=== PATIENT | male | born 1975 | race Caucasian/White ===

== ENCOUNTER 2017-09-21 09:22 | Emergency (ER) | payer SELFPAY ==
[~2017-09-21] VITALS: Ht 175.3 cm; Wt 85.0 kg
[2017-09-21 09:26] VITALS: BP 189/100; PULSE 83; RESP 16; TEMP 97.8; O2SAT 99
--- NOTE | 2017-09-21 10:03 | PD ---
HPI Chief Complaint: Musculoskeletal Complaint Time Seen by Provider: 09:56 Travel History International Travel<30 days: No Contact w/Intl Traveler<30days: No Traveled to known affect area: No History of Present Illness HPI 42-year-old male presents emergency department for evaluation of low back and left shoulder pain. Says that he was at [employer] this morning when he was bent over and stood up suddenly and felt a pain in his lower back. Says that the pain is worse with standing and decreases with rest. Mild to moderate in severity. Says the pain is located in the lower lumbar paraspinous area that is sharp and radiates to the front of the thighs. Denies weakness. Denies fevers , loss of bowel or bladder function, saddle anesthesia, IV drug use, direct trauma. In addition, says that his left shoulder has been sore since yesterday. He points to the acromion process and trapezius muscles. He denies any inciting events or injuries. Denies history of shoulder injuries. Says the arm is worse with shoulder abduction and decreases with rest. Mild to moderate in severity. He denies weakness. Denies numbness or tingling of the arm. No known medical problems. No history of kidney stones. No nausea, vomiting or diarrhea. No hematuria. PFSH Past Medical History Medical History: Denies Significant Hx Diminished Hearing: No Influenza Vaccination: No ?: Not Past Surgical History Surgical History: No Previous Surgery Social History Alcohol Use: No Tobacco Use: No Substance Use: No Allergies-Medications (Allergen,Severity, Reaction): Coded Allergies: No Known Allergies (Unverified , 09/21/17) Reported Meds & Prescriptions Reported Meds & Active Scripts Active Medrol Dosepak (Methylprednisolone) 4 Mg Dspk 4 Mg PO DIRECTED Per Pharmacist direction Robaxin (Methocarbamol) 500 Mg Tab 500 Mg PO TID 3 Days Review of Systems Except as stated in HPI: all other systems reviewed are Neg Physical Exam Narrative GENERAL: Well-nourished, well-developed patient, in NAD SKIN: Focused skin assessment warm/dry. No rashes or lesions. HEAD: Normocephalic. Atraumatic. EYES: No scleral icterus. No injection or drainage. PERRLA, EOMI THROAT: No pharyngeal injection, exudates, or tonsillar hypertrophy. Airway is patent. NECK: Supple, trachea midline. No JVD or lymphadenopathy. No meningismus. No midline tenderness CARDIOVASCULAR: Regular rate and rhythm without murmurs, gallops, or rubs. RESPIRATORY: Breath sounds equal bilaterally. No accessory muscle use. No wheezes, rales, or rhonchi MUSCULOSKELETAL: No cyanosis, or edema. Left shoulder-mild tenderness to palpation of the trapezius muscles of the left shoulder, near full range of motion, positive Garcia, mildly positive empty can test. No deformities or contusions noted BACK: No CVA tenderness. No rash. No point tenderness on palpation of the spine. Mild tenderness palpation of the left lower lumbar paraspinous area and somewhat on the right. Neurovascular intact lower extremities. Data Data Last Documented VS Vital Signs Date Time Temp Pulse Resp B/P (MAP) Pulse Ox O2 Delivery O2 Flow Rate FiO2 09/21/17 09:26 97.8 83 16 189/100 (129) 99 Orders Orders Ed Discharge Order (09/21/17 10:11) [facility] Medical Decision Making Medical Screen Exam Complete: Yes Emergency Medical Condition: Yes Differential Diagnosis lumbago, sciatica, muscle spasms, strain, sprain, fracture, cauda equina syndrome, abscess Left shoulder contusion, bursitis, cellulitis, fracture, osteonecrosis, avascular necrosis, sprain, strain Narrative Course 42-year-old male presents emergency department for evaluation of low back and left shoulder pain. Says that he was at [employer] this morning when he was bent over and stood up suddenly and felt a pain in his lower back. Says that the pain is worse with standing and decreases with rest. Says the pain is located in the lower lumbar paraspinous area that is sharp and radiates to the front of the thighs. Denies weakness. Denies fevers, loss of bowel or bladder function , saddle anesthesia, IV drug use, direct trauma. In addition, says that his left arm has been sore since yesterday. He points to the acromion process and trapezius muscles. He denies any inciting events or injuries. Denies history of shoulder injuries. Says the arm is worse with shoulder abduction and decreases with rest. He denies weakness. Denies numbness or tingling of the arm. No known medical problems. No history of kidney stones. No nausea, vomiting or diarrhea. No hematuria. Vital signs are stable. History and physical consistent with lumbago with sciatica on the left. Muscle spasms present in the lower lumbar region. Left shoulder has near full range of motion without significant weakness. I suspect a rotator cuff injury. He will be discharged with steroids and Robaxin. Advised to follow-up with a primary care physician for further evaluation and treatment. Of note, requested labs to check for diabetes but there was no indication or reason for me to check these labs today. I advised that the best course of action would be to follow up with his primary care physician. Diagnosis Primary Impression: Lumbago Qualified Codes: M54.42 - Lumbago with sciatica, left side Additional Impression: Shoulder pain Qualified Codes: M25.512 - Pain in left shoulder Referrals: [facility] Orthopedist Patient Instructions: Acute Low Back Pain (ED), General Instructions, Muscle Spasm (ED) Departure Forms: Tests/Procedures Additional Instructions: I highly recommend he follow-up with the primary care physician for regular care. You may need to see an customer success specialist or retail presentation specialist and he may need a referral from your primary care physician in order to see this specialist. Perform light stretches of the lower back and legs, and alternate heat and ice packs. If you develop increased pain, weakness, fever, chills, or bowel or bladder issues, return to the ED for further treatment and evaluation. Use ice or heat for symptom relief. If no contraindications, you may use Tylenol or Motrin per package instructions for your pain. You may use compression with Jermain wrap or similar to reduce swelling. If symptoms persist or worsen, return to the emergency department. Follow up with your primary care physician within 2 days. Scripts Methylprednisolone Dosepak (Medrol Dosepak) 4 Mg Dspk 4 MG PO DIRECTED, #1 DSPK 0 Refills Per Pharmacist direction Prov: Laura Oro DO 09/21/17 Methocarbamol (Robaxin) 500 Mg Tab 500 MG PO TID for Muscle Spasm for 3 Days, TAB 0 Refills Prov: Laura Oro DO 09/21/17 Disposition: 01 DISCHARGE HOME Condition: Stable Anna Mac Sep 21, 2017 10:03
[2017-09-21] MEDS ORDERED: ROBA500T PO (10:13)
[2017-09-21] MEDS ORDERED: MEDR4PAK PO (10:13)
== END 2017-09-21 10:27 | disposition home or self-care (01) ==
LOC: PHED 09:22 → PHEFT 10:27
DX: M54.42 Lumbago with sciatica, left side (principal); M25.512 Pain in left shoulder; Z79.899 Other long term (current) drug therapy
CPT/HCPCS: 99283